=== PATIENT | female | born 1990 | race Caucasian/White ===

== ENCOUNTER → 2022-02-05 | Day surgery (SDC) | payer OTHER | LOC: CSHSDC/OP 11:07 | PROVIDERS: ATTEND Obstetrics & Gynecology | DX: O36.0190 Maternal care for anti-D [Rh] antibodies, unspecified trimester, not applicable or unspecified (principal); Z67.11 Type A blood, Rh negative | CPT/HCPCS: 36415; 86900; 86901; 90384; 96372 ==

== ENCOUNTER 2022-03-03 17:18 | Day surgery (SDC) | payer OTHER ==
[2022-03-03 17:37] VITALS: BMI 46.5
[2022-03-03] MEDS ORDERED: hydrALAZINE 20 MG/ML VIAL SLOW IVP PRN (18:16)
== END 2022-03-03 18:15 | disposition home or self-care (01) ==
LOC: CSHLD/OP 17:18
PROVIDERS: ATTEND Obstetrics & Gynecology
DX: O26.893 Other specified pregnancy related conditions, third trimester (principal); R10.12 Left upper quadrant pain; O13.3 Gestational [pregnancy-induced] hypertension without significant proteinuria, third trimester; Z79.899 Other long term (current) drug therapy; Z3A.32 32 weeks gestation of pregnancy; X50.1XXA Overexertion from prolonged static or awkward postures, initial encounter
CPT/HCPCS: 99282

== ENCOUNTER 2022-04-08 05:30 | Inpatient (IN) | payer OTHER ==
[2022-04-07 11:29] LABS: #Eosinphils 0.1 10x3/uL (0.0-0.5); #Monocytes 0.8 10x3/uL (0.0-1.1); #Neutrophils 8.9 10x3/uL (1.5-8.4); %Basophils 0.1 % (0.0-2.0); %Eosinophils 0.9 % (0.0-6.0); %Lymphocytes 16.4 % (18.0-47.0); %Monocytes 6.6 % (0.0-10.0); %Neutrophils 75.6 % (40.0-75.0); Hemoglobin 12.1 g/dL (12.0-15.5); Mean Corpuscular Hemoglobin 28.2 pg (27.0-33.0); Mean Platelet Volume 10.2 fl (7.4-10.4); Platelet Count 220 10x3/uL (150-450); RBC Distribution Width 14.6 % (11.5-14.5); Red Blood Cell (RBC) Count 4.29 10x6/uL (3.90-5.03); White Blood Cell (WBC) Count 11.7 10x3/uL (3.5-10.5)
[2022-04-07 11:53] LABS: SARS-CoV-2 NAA Rapid Test Not Detected (NotDetected)
[2022-04-07 11:59] LABS: Syphilis Antibody Nonreactive (Nonreactive); Syphilis Antibody Index 0.05 S/CO (<1.00 Non-Reactive)
[2022-04-07 12:00] LABS: HBSAg Index 0.18 S/CO (0-0.99); Hep B Surf Ag Non-Reactive S/CO (NonReactive)
[2022-04-08 09:50] VITALS: BMI 54.8
[2022-04-08] MEDS ORDERED: Famotidine/PF 20 mg/2ml Vial SLOW IVP PRN (10:02)
[2022-04-08] MEDS ORDERED: Bicitra 30 ML UDCUP PO PRN (10:02)
[2022-04-08] MEDS ORDERED: Acetaminophen 500 MG TAB PO PRN (10:02)
[2022-04-08] MEDS ORDERED: hydrALAZINE 20 MG/ML VIAL SLOW IVP PRN (10:02)
[2022-04-08] MEDS ORDERED: Ondansetron PF 4 MG/2 ML Vial IVP PRN ×2 (10:02→11:05)
[2022-04-08] MEDS ORDERED: Butorphanol Tartrate 1 MG/ML VIAL SLOW IVP PRN (10:02)
[2022-04-08] MEDS ORDERED: Promethazine HCl 25 MG/ML VIAL IM PRN ×2 (10:02→11:05)
[2022-04-08] MEDS ORDERED: CEFAZOLIN 2 GM in Sodium Chloride 0.9% 100 ML IVPB SCH (10:15)
[2022-04-08] MEDS ORDERED: Lactated Ringer's 1,000 ML IV SCH (10:15)
[2022-04-08] MEDS ORDERED: Morphine PF 10 MG/10 ML VIAL ONE (10:55)
[2022-04-08] MEDS ORDERED: Glycopyrrolate 0.2 MG/ML 5 ML SYRINGE ONE (10:55)
[2022-04-08] MEDS ORDERED: ePHEDrine Sulfate 50 MG/10 ML VIAL ONE (10:55)
[2022-04-08] MEDS ORDERED: Ondansetron PF 4 MG/2 ML Vial ONE (10:56)
[2022-04-08] MEDS ORDERED: Dexamethasone 4 mg/ml Vial ONE (10:56)
[2022-04-08] MEDS ORDERED: Phenylephrine 40 MG/NS 250 ML 250 ML ONE (10:56)
[2022-04-08] MEDS ORDERED: PHENYLEPHRINE-NS 100 MCG/ML 10 ML SYRINGE ONE (10:56)
[2022-04-08] MEDS ORDERED: Ketorolac Tromethamine 30 MG/ML VIAL ONE (10:56)
[2022-04-08] MEDS ORDERED: Oxytocin 10 UNITS/ML VIAL ONE (10:56)
[2022-04-08] MEDS ORDERED: Fentanyl 100 MCG/2 ML VIAL SLOW IVP PRN (11:05)
[2022-04-08] MEDS ORDERED: Naloxone HCl 0.4 mg/ml Vial IVP PRN ×2 (11:05)
[2022-04-08] MEDS ORDERED: Meperidine HCl/PF 25 MG/ML VIAL SLOW IVP PRN (11:05)
[2022-04-08] MEDS ORDERED: Ketorolac Tromethamine 30 MG/ML VIAL IVP PRN (11:05)
[2022-04-08] MEDS ORDERED: Naloxone HCl 0.4 mg/ml Vial IV PRN (11:05)
[2022-04-08] MEDS ORDERED: diphenhydrAMINE 50 MG/ML VIAL IVP PRN (11:05)
[2022-04-08] MEDS ORDERED: Moisturizing Cream (Eucerin) 113 GM JAR TOP PRN (11:05)
[2022-04-08] MEDS ORDERED: Promethazine HCl 25 MG SUPP PR PRN (11:05)
[2022-04-08] MEDS ORDERED: Ondansetron HCl/PF 4 MG/2 ML Vial IVP PRN (11:05)
[2022-04-08] MEDS ORDERED: Ketorolac Tromethamine 30 MG/ML VIAL IVP SCH (11:15)
[2022-04-08] MEDS ORDERED: Communication Order-Pharmacy FS SCH (11:15)
[2022-04-08] MEDS ORDERED: Bisacodyl 10 MG SUPP PR PRN (15:39)
[2022-04-08] MEDS ORDERED: Misoprostol 200 MCG TAB PR PRN (15:39)
[2022-04-08] MEDS ORDERED: NS w/ Oxytocin 30 units 500 ML IV SCH (15:39)
[2022-04-08] MEDS ORDERED: Boostrix 0.5 ML (Tdap) VIAL (>/=7 yrs of age) IM ONE (15:39)
[2022-04-08] MEDS ORDERED: diphenhydrAMINE 25 MG CAP PO PRN (15:39)
[2022-04-08] MEDS ORDERED: Lanolin Ointment 7 GM TUBE TOP PRN (15:39)
[2022-04-08] MEDS ORDERED: Acetaminophen 325 MG TAB PO PRN (15:39)
[2022-04-08] MEDS: Ferrous Sulfate 325 MG TAB PO SCH (22:00)
[2022-04-08] MEDS: Enoxaparin Sodium 60 MG/0.6 ML SYRINGE SC SCH (22:00)
[2022-04-08] MEDS: Docusate 100 MG CAP PO SCH (22:00)
[2022-04-08] MEDS ORDERED: HYDROcodone/Acetaminophen 5/325 mg Tablet PO PRN (23:15)
[2022-04-09 04:56] LABS: Mean Corpuscular HGB CONC 33.4 g/dL (32.0-36.0); Mean Corpuscular Hemoglobin 28.1 pg (27.0-33.0); Mean Platelet Volume 10.6 fl (7.4-10.4); Platelet Count 175 10x3/uL (150-450); RBC Distribution Width 14.2 % (11.5-14.5); Red Blood Cell (RBC) Count 3.56 10x6/uL (3.90-5.03); White Blood Cell (WBC) Count 12.3 10x3/uL (3.5-10.5)
[2022-04-09] MEDS: Simethicone Chewable 80 MG TAB PO PRN ×2 (06:29→22:08)
[2022-04-09] MEDS: Ferrous Sulfate 325 MG TAB PO SCH (08:34)
[2022-04-09] MEDS: Prenatal Vitamin 1 TAB PO SCH (08:55)
[2022-04-09] MEDS: Docusate 100 MG CAP PO SCH ×2 (08:55→20:19)
[2022-04-09] MEDS: Ibuprofen 800 MG TAB PO SCH ×2 (14:01→22:07)
[2022-04-09] MEDS: HYDROcodone/Acetaminophen 5/325 mg Tablet PO PRN ×2 (14:01→20:19)
[2022-04-09] MEDS: Enoxaparin Sodium 60 MG/0.6 ML SYRINGE SC SCH (22:08)
[2022-04-10] MEDS: Ibuprofen 800 MG TAB PO SCH ×2 (05:43→13:16)
[2022-04-10] MEDS: Simethicone Chewable 80 MG TAB PO PRN (05:43)
[2022-04-10 08:05] VITALS: TEMP 98.3
[2022-04-10 11:26] VITALS: BP 145/84
[2022-04-10] MEDS: Ferrous Sulfate 325 MG TAB PO SCH (13:17)
[2022-04-10] MEDS: Docusate 100 MG CAP PO SCH (13:17)
[2022-04-10] MEDS: Prenatal Vitamin 1 TAB PO SCH (13:17)
== END 2022-04-10 14:10 | disposition home or self-care (01) | DRG 787 ==
LOC: CSHLD 09:30 → CSHPP 15:35
PROVIDERS: ADMIT Obstetrics & Gynecology; ATTEND Obstetrics & Gynecology
PROC: 10D00Z1 Extraction of Products of Conception, Low, Open Approach (ICD-10-PCS; principal; 2022-04-08)
PROC: 3E0334Z Introduction of Serum, Toxoid and Vaccine into Peripheral Vein, Percutaneous Approach (ICD-10-PCS; 2022-04-08)
DX: O32.1XX0 Maternal care for breech presentation, not applicable or unspecified (principal); O10.92 Unspecified pre-existing hypertension complicating childbirth; Z3A.38 38 weeks gestation of pregnancy; Z37.0 Single live birth; O26.893 Other specified pregnancy related conditions, third trimester; Z67.11 Type A blood, Rh negative; E66.01 Morbid (severe) obesity due to excess calories; O99.214 Obesity complicating childbirth; Z79.899 Other long term (current) drug therapy; Z20.822 Contact with and (suspected) exposure to COVID-19
CPT/HCPCS: 36415; 51702; 85025; 85027; 85461; 86780; 86850; 86900; 86901; 87340; 90384; 96372; J1100; J1650; J1885; J2274; J2405; J2590; J3490; S0028; U0002